=== PATIENT | female | born 1955 | race Caucasian/White ===

== ENCOUNTER → 2021-10-15 | Outpatient (CLI) | payer MEDICARE ==
[~2021-10-15] MED LIST: COLACE 100MG C100 MG PO; EFFEXOR 37.537.5 MG PO; HYDROCODON-ACE1 EAC4 PO; IBUPROFEN600 MG PO; IBUPROFEN800 MG PO; LISINOPRIL10 MG PO; MOBIC15 MG PO; NEURONTIN300 MG PO; NORCO 5-325 TA1 EACH PO; NORVASC5 MG PO; ONDANSETRON ODT4 MG PO; VITAMIN D PO
[2021-10-15 12:01] LABS: HEMOGLOBIN 13.2 gm/dl (12.3-15.3); RED BLOOD COUNT 4.23 M/UL (4.00-5.10); WHITE BLOOD COUNT 7.6 K/UL (4.5-11.0)
[2021-10-15 12:22] LABS: BUN/CREATININE RATIO 17 (0-10)
== END ==
LOC: OPSV2 10:00
PROVIDERS: Obstetrics & Gynecology
DX: Z01.818 Encounter for other preprocedural examination (principal); N85.00 Endometrial hyperplasia, unspecified
CPT/HCPCS: 36415; 71046; 80053; 81001; 85025; 93005

== ENCOUNTER → 2021-10-22 | Day surgery (SDC) | payer MEDICARE ==
[~2021-10-22] MED LIST changes: +IBU600 MG PO
== END | disposition home or self-care (01) ==
LOC: OR 09:58
DX: N84.0 Polyp of corpus uteri (principal); N88.2 Stricture and stenosis of cervix uteri; E78.5 Hyperlipidemia, unspecified; I10 Essential (primary) hypertension; E66.01 Morbid (severe) obesity due to excess calories; Z68.42 Body mass index [BMI] 45.0-49.9, adult; Z20.822 Contact with and (suspected) exposure to COVID-19; Z88.8 Allergy status to other drugs, medicaments and biological substances
CPT/HCPCS: J1100; J1170; J2001; J2250; J2405; J2704; J2795; J3010; J7120

== ENCOUNTER → 2021-12-18 | Outpatient (CLI) | payer MEDICARE, OTHER ==
[~2021-12-18] MED LIST changes: +DOCUSATE SODIU250 MG PO; +HYDROCODONE-AC1 EACH PO; +VITAMIN D325 MCG PO; +WOMEN'S DAILY1 EAC1 PO
[2021-12-18 10:37] LABS: HEMOGLOBIN 13.3 gm/dl (12.3-15.3); RED BLOOD COUNT 4.22 M/UL (4.00-5.10); WHITE BLOOD COUNT 7.2 K/UL (4.5-11.0)
[2021-12-18 11:07] LABS: BUN/CREATININE RATIO 18 (0-10)
== END ==
LOC: OPSV2 12-17 09:00
PROVIDERS: Obstetrics & Gynecology
DX: Z01.812 Encounter for preprocedural laboratory examination (principal); R93.89 Abnormal findings on diagnostic imaging of other specified body structures
CPT/HCPCS: 80053; 81001; 85025

== ENCOUNTER → 2021-12-23 | Day surgery (SDC) | payer MEDICARE, OTHER | END | disposition home or self-care (01) | LOC: OR 05:36 | DX: N72 Inflammatory disease of cervix uteri (principal); N84.0 Polyp of corpus uteri; E78.5 Hyperlipidemia, unspecified; I10 Essential (primary) hypertension; E66.01 Morbid (severe) obesity due to excess calories; Z68.42 Body mass index [BMI] 45.0-49.9, adult; Z88.8 Allergy status to other drugs, medicaments and biological substances | CPT/HCPCS: C1769; J0690; J1100; J1170; J1885; J2001; J2250; J2270; J2405; J2704; J2710; J3010 ==